=== PATIENT | female | born 1985 | race Caucasian/White ===

== ENCOUNTER 2023-08-15 15:12 | Emergency (ER) | payer BC ==
[2023-08-15] MEDS ORDERED: traMADol 50 MG Tab PO ONE (15:13)
[2023-08-15 15:19] VITALS: BP 152/92; PULSE 115
[2023-08-15] MEDS: traMADol 50 MG Tab PO ONE (15:39)
== END 2023-08-15 16:11 | disposition home or self-care (01) ==
LOC: FB.ED 15:12
DX: S02.2XXA Fracture of nasal bones, initial encounter for closed fracture (principal); Z79.899 Other long term (current) drug therapy; W21.05XA Struck by basketball, initial encounter
CPT/HCPCS: 70160; 99283; A9270-GY